=== PATIENT | female | born 1960 ===

== ENCOUNTER → 2024-12-08 09:35 | Outpatient (CLI) | payer OTHER, SELFPAY ==
--- NOTE | 2024-12-08 09:42 | DI.US.S_ITS ---
PROCEDURE: US ABDOMEN LIMITED INDICATIONS: ABNORMAL LIVER FUNCTION TESTS. HISTORY OF HEPATITIS B. TECHNIQUE: Real-time scanning was performed of the abdominal and retroperitoneal organs, with image documentation. COMPARISON: None. FINDINGS: Liver: Liver is normal in size and increased in echogenicity. There are a few hypoechoic areas without vascularity, likely focal fatty sparing with largest measuring up to 3 centimeters.. Gallbladder: No gallstones. No wall thickening. No pericholecystic edema. Negative sonographic Gaviria's sign. Biliary ducts: Intrahepatic bile ducts are non-dilated. Extrahepatic bile duct caliber measures 7.6 mm. Normal is 6-7 mm or less in diameter, or 10 mm or less post-cholecystectomy. Pancreas: Not well seen. Miscellaneous: No free abdominal fluid. IMPRESSION: 1. Hepatic steatosis with areas of likely fatty sparing. 2. Minimal common bile duct dilatation measuring up to 7.6 millimeters, normal is 7 millimeters or less. Recommend laboratory correlation and consider MRCP as clinically indicated. Dictated by: Martin Louis M.D. on 12/08/2024 at 13:47 Approved by: Martin Louis M.D. on 12/08/2024 at 13:49
== END ==
DX: Z01.84 Encounter for antibody response examination (principal); R94.5 Abnormal results of liver function studies; E88.89 Other specified metabolic disorders; K83.8 Other specified diseases of biliary tract
CPT/HCPCS: 76705